=== PATIENT | male | born 1950 | race Caucasian/White ===

== ENCOUNTER 2021-07-26 20:32 | Inpatient (IN) | payer MEDICARE, OTHER ==
[~2021-07-26] VITALS: Ht 172.7 cm; Wt 84.8 kg
--- NOTE | 2021-07-26 23:35 | NUR ---
Pt arrived at the ER with c/o groin pain from hernia x 3 months.
--- NOTE | 2021-07-27 00:20 | NUR ---
Spoke to Caleb Reinoso patient to have surgery today at 9:40 and requested to obtain IC for Repair of bilateral incarcerated inguinal hernias and possible mesh. Will carry out order.
[2021-07-27 00:46] LABS: HEMATOCRIT 34.7 % (36.7-47.1); MEAN CORPUSCULAR HEMOGLOBIN 33.6 uug (23.8-33.4); MEAN CORPUSCULAR VOLUME 100.5 fL (73.0-96.2); PLATELET COUNT (AUTO) 251 K/uL (152-348)
[2021-07-27 00:58] LABS: *BILIRUBIN,URIN NEGATIVE (NEGATIVE); *BLOOD, URINE NEGATIVE (NEGATIVE); *CLARITY,URINE CLEAR (CLEAR); *COLOR,URINE YELLOW (YELLOW); *KETONES,URINE NEGATIVE (NEGATIVE); *UROBILINOGEN,URINE 0.2 E.U./dl (NORMAL); LEUKOCYTE ESTERASE ,URINE NEGATIVE (NEGATIVE); NITRITE, URINE NEGATIVE (NEGATIVE); PH,URINE 5.5 (5.0-8.0); UGLUCOSE NEGATIVE (NEGATIVE)
[2021-07-27 00:58] LABS: CREATININE 1.4 mg/dL (0.6-1.3); POTASSIUM 4.3 mmol/L (3.5-5.1)
[2021-07-27 01:04] LABS: BILIRUBIN,DIRECT 0.3 mg/dL (0.0-0.2); BILIRUBIN,TOTAL 0.6 mg/dL (0.2-1.0); TOTAL PROTEIN, SERUM 6.6 g/dL (6.4-8.2)
--- NOTE | 2021-07-27 01:10 | NUR ---
Epic panel call placed, spoke to Alis , she stated she will get a hold of [facility] Guillermo Giraldo for admitting.
--- NOTE | 2021-07-27 01:13 | NUR ---
Dr. Disla on panel call with Marlee Villela. Patient accepted for admission to Medical surgical floor. Dx. Incarcerated inguinal hernias.
--- NOTE | 2021-07-27 01:27 | NUR ---
Obtained IC for surgery from patient.
[2021-07-27] MEDS ORDERED: Z GUARD REMEDY PASTE 57 GM TUBE TOP PRN ×2 (01:30→09:15)
[2021-07-27] MEDS ORDERED: ONDANSETRON 4 MG/2 ML VIAL IV PRN ×2 (01:30→09:15)
[2021-07-27] MEDS ORDERED: ACETAMINOPHEN 325 MG TABLET PO PRN (01:30)
[2021-07-27] MEDS ORDERED: IV NS 1000 ML 1,000 ML IV PRN ×3 (01:30→12:15)
[2021-07-27] MEDS ORDERED: MORPHINE SULFATE 2 MG/1 ML DISP.SYRIN IV PRN ×2 (01:30→09:15)
[2021-07-27] MEDS ORDERED: DOCU100C36 PO (01:46)
[2021-07-27] MEDS ORDERED: BENA20TA9 PO (01:46)
[2021-07-27] MEDS ORDERED: CYCL100C PO (01:46)
[2021-07-27] MEDS ORDERED: METF-494 PO (01:46)
[2021-07-27] MEDS ORDERED: MYCO250C PO (01:46)
[2021-07-27] MEDS ORDERED: CYCL25CA3 PO (01:46)
[2021-07-27] MEDS ORDERED: ASCO-375 PO (01:46)
[2021-07-27] MEDS ORDERED: ROSU10TA2 PO (01:46)
[2021-07-27] MEDS ORDERED: AMLO10TA59 PO (01:46)
[2021-07-27] MEDS ORDERED: PANT40TA49 PO (01:46)
[2021-07-27] MEDS ORDERED: CALC-764 PO (01:46)
[2021-07-27] MEDS ORDERED: CARV25TA2 PO (01:46)
[2021-07-27] MEDS ORDERED: VALG450T4 PO (01:46)
[2021-07-27] MEDS ORDERED: VITA400T9 PO (01:46)
[2021-07-27] MEDS ORDERED: APIX5TAB PO (01:46)
--- NOTE | 2021-07-27 06:16 | NUR ---
Patient sleeping in bed. AOx4. In no apparent distress. No complain of pain or SOB. O2 sat at 94% on RA. IV site on right hand intact and patent. NPO status. Needs attended to and met. Safety measure maintained.
--- NOTE | 2021-07-27 08:20 | NUR ---
Gave report to surgery dept.
[2021-07-27] MEDS ORDERED: LIDOCAINE 1%-EPI 1:100,000 20 ML VIAL ONE ×2 (08:30)
[2021-07-27] MEDS ORDERED: BUPIVACAINE PF 0.5% 30 ML VIAL ONE (08:30)
--- NOTE | 2021-07-27 08:35 | NUR ---
pt c/o 01/14 CANTU. Called surgery to verify administration was okay, they stated it was. Admin Tylenol 625 mg PO.
[2021-07-27] MEDS ORDERED: BACITRACIN ZINC OINT 15 GM TUBE ONE (08:36)
[2021-07-27] MEDS ORDERED: ACETAMINOPHEN 325 MG TABLET ONE (08:39)
[2021-07-27] MEDS ORDERED: MIDAZOLAM HCL 2 MG/2 ML VIAL ONE (08:42)
[2021-07-27] MEDS ORDERED: HYDROMORPHONE 2 MG/1 ML DISP.SYRIN ONE (08:43)
[2021-07-27] MEDS ORDERED: FENTANYL CITRATE 250 MCG/5 ML AMPUL ONE (08:43)
[2021-07-27] MEDS ORDERED: ROCURONIUM BROMIDE 50 MG/5 ML VIAL ONE (08:44)
[2021-07-27] MEDS ORDERED: DEXAMETHASONE SOD PHOSPHATE 10 MG INJ ONE (08:44)
[2021-07-27] MEDS ORDERED: PANTOPRAZOLE SODIUM 40 MG VIAL IV SCH ×2 (09:00→11:00)
--- NOTE | 2021-07-27 12:45 | NUR ---
Received from recovery unit via [facility]. Patient awake, alert and oriented x 4. On 2L NC, saturating 98-99%. Vital signs WNL. Oriented patient to unit and room. Call light within reach. Bed alarm on for safety. Will continue to monitor.
[2021-07-27 12:55] VITALS: BP_SYST 155; BP_SYST 174; BP_DIAS 109; BP_DIAS 95
[2021-07-27] MEDS ORDERED: ACETAMINOPHEN 325 MG TABLET PO SCH (14:00)
[2021-07-27] MEDS ORDERED: GABAPENTIN 300 MG CAPSULE PO SCH (14:00)
[2021-07-27] MEDS ORDERED: IBUPROFEN 800 MG TABLET PO SCH (14:00)
[2021-07-27 15:19] VITALS: BP 156/100
[2021-07-27] MEDS ORDERED: DEXAMETHASONE SOD PHOSPHATE 4 MG INJ IV ONE (17:34)
[2021-07-27] MEDS ORDERED: NEOSTIGMINE METHYLSULFATE 10 MG/10 ML VIAL IM ONE (17:34)
[2021-07-27] MEDS ORDERED: LIDOCAINE-MPF 2% 5 ML VIAL IJ ONE (17:34)
[2021-07-27] MEDS ORDERED: SEVOFLURANE 250 ML BOTTLE IH ONE (17:34)
[2021-07-27] MEDS ORDERED: PROPOFOL 200 MG/20 ML BOTTLE IV ONE (17:34)
[2021-07-27] MEDS ORDERED: GLYCOPYRROLATE 0.2 MG/ML VIAL IJ ONE (17:34)
[2021-07-27] MEDS ORDERED: METOCLOPRAMIDE HCL 10 MG/2 ML VIAL IV ONE (17:34)
[2021-07-27] MEDS ORDERED: ONDANSETRON 4 MG/2 ML VIAL IV ONE (17:34)
[2021-07-27] MEDS ORDERED: CEFAZOLIN 1 G VIAL IM ONE (17:34)
--- NOTE | 2021-07-27 17:40 | NUR ---
Discharged patient to home. Patient AOx4. On room air, saturating 98-99%. No signs of acute distress. Vital sign WNL. Patient able to void before discharge. Patient denied pain at time of discharge. IV access removed. ID armband removed. Belongings accounted for and belongings list signed. Prescription given to patient. Discharge instructions given to patient and patient daughter. Patient transported to [facility] via wheelchair. Patient left hospital via private car.
== END 2021-07-27 17:35 | disposition home or self-care (01) | DRG 351 ==
LOC: ER 20:32 → MEDSURG3 07-27 10:47
PROVIDERS: ADMIT Surgery; ATTEND Hospitalist
PROC: 0YU50JZ Supplement Right Inguinal Region with Synthetic Substitute, Open Approach (ICD-10-PCS; principal; 2021-07-27)
PROC: 0YQ64ZZ Repair Left Inguinal Region, Percutaneous Endoscopic Approach (ICD-10-PCS; 2021-07-27)
DX: K40.00 Bilateral inguinal hernia, with obstruction, without gangrene, not specified as recurrent (principal); Z94.1 Heart transplant status; I25.811 Atherosclerosis of native coronary artery of transplanted heart without angina pectoris; Z87.891 Personal history of nicotine dependence; I45.10 Unspecified right bundle-branch block; E11.22 Type 2 diabetes mellitus with diabetic chronic kidney disease; I12.9 Hypertensive chronic kidney disease with stage 1 through stage 4 chronic kidney disease, or unspecified chronic kidney disease; N18.9 Chronic kidney disease, unspecified; Z79.01 Long term (current) use of anticoagulants; Z80.3 Family history of malignant neoplasm of breast; Z82.49 Family history of ischemic heart disease and other diseases of the circulatory system; Z83.3 Family history of diabetes mellitus; E78.5 Hyperlipidemia, unspecified; Z79.84 Long term (current) use of oral hypoglycemic drugs; Z79.899 Other long term (current) drug therapy
CPT/HCPCS: 36415; 71045; 85025; 85730; 93005; A4217; A4649; A4663; C1781; G0378; J0690; J1100; J1170; J2250; J2405; J2765; J3010; J3490; J7030